=== PATIENT | female | born 1985 | race Caucasian/White ===

== ENCOUNTER 2022-11-21 08:30 | Outpatient (CLI) | payer BC, OTHER | END 2022-11-21 08:45 | disposition home or self-care (01) | LOC: LAB.N 08:30 | PROVIDERS: ATTEND Physician Assistant Medical | DX: N30.00 Acute cystitis without hematuria (principal) | CPT/HCPCS: 87086; 87181 ==

== ENCOUNTER 2023-10-06 17:00 | Outpatient (CLI) | payer BC ==
--- NOTE | 2023-10-08 15:22 | Ultrasound Report ---
PROCEDURE: Pelvic w/Transvaginal INDICATIONS: PELVIC PAIN TECHNIQUE: Real-time scanning was performed of the pelvic organs, with image documentation. Additional endovagi nal scanning was necessary due to incomplete visualization of the adnexal and endometrial structures by transabdominal scanning. COMPARISON: None. FINDINGS: Uterus: Uterus is anteverted and normal in size at 10.1 x 4.2 x 5.4 cm. The myometrium is heterogen eous. The endometrium measures 7.8 mm in combined thickness. Ovaries: The right ovary measures 3.0 x 1.7 x 3.1 cm, with a calculated ovarian volume of 8.0 cc. T he left ovary measures 3.7 x 2.2 x 3.4 cm, with a calculated ovarian volume of 14.5 cc. The ovaries have a normal sonographic appearance. Less than 12 follicles can be seen in each ovary. No adnexal masses are seen. No cystic lesions measuring greater than 3 cm. Other: No pathologic free abdominal or pelvic fluid. IMPRESSION: Unremarkable pelvic ultrasound. Reviewed by: Mary Ellen Lozano MD on 10/08/2023 3:21 PM PST Approved by: Mary Ellen Lozano MD on 10/08/2023 3:21 PM PST Station ID: [id number]
== END 2023-10-06 17:01 | disposition home or self-care (01) ==
LOC: DI 17:00
PROVIDERS: ATTEND Obstetrics & Gynecology
DX: R10.2 Pelvic and perineal pain (principal)